=== PATIENT | female | born 2000 | race American Indian/Alaskan Native ===

== ENCOUNTER 2022-01-12 18:58 | Emergency (ER) | payer OTHER, MEDICAID ==
[2022-01-12 23:38] VITALS: BP 142/76
[2022-01-13] MEDS ORDERED: IBUPROFEN 600 MG TAB PO ONE (00:43)
[2022-01-13] MEDS ORDERED: ACETAMINOPHEN 500 MG TAB PO ONE (00:43)
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
== END 2022-01-13 01:53 | disposition home or self-care (01) ==
LOC: ED 18:58
DX: S83.91XA Sprain of unspecified site of right knee, initial encounter (principal); M62.830 Muscle spasm of back; V89.2XXA Person injured in unspecified motor-vehicle accident, traffic, initial encounter; Y93.89 Activity, other specified; Y92.89 Other specified places as the place of occurrence of the external cause; Y99.8 Other external cause status
CPT/HCPCS: 99282